=== PATIENT | female | born 1960 | race African-American/Black ===

== ENCOUNTER 2019-03-28 09:33 | Emergency (ER) | payer OTHER, MEDICAID ==
[~2019-03-28] VITALS: Ht 162.6 cm; Wt 58.1 kg
--- NOTE | 2019-03-28 09:33 | NUR ---
PT BIBA BLS TO ER BED 03
[2019-03-28 09:35] VITALS: BP 127/96
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
--- NOTE | 2019-03-28 09:50 | NUR ---
RESIDENT DOCTOR AT BEDSIDE FOR PT EVALUATION
--- NOTE | 2019-03-28 09:56 | NUR ---
DR Brandon JUAREZ AT BEDSIDE FOR PT EVALUATION
[2019-03-28] MEDS ORDERED: KETOROLAC 15 MG/ML VIAL IM ONE (10:10)
--- NOTE | 2019-03-28 10:33 | NUR ---
PT TAKEN TO CT BY ENVIRONMENTAL GEOLOGIST VIA BED
--- NOTE | 2019-03-28 10:50 | NUR ---
PT TAKEN BACK FROM CT VIA BED
--- NOTE | 2019-03-28 11:15 | NUR ---
PT ASLEEP. EASILY AROUSABLE BY NAME. FULL CLEAR SPEECH. PT STATES HER PAIN IS SUBSIDING TO 3/10. NO SIGNS AND SYMPTOMS OF DISTRESS NOTED. WILL CONTINUE TO MONITOR.
[2019-03-28 12:45] VITALS: BP 124/84
--- NOTE | 2019-03-28 12:45 | NUR ---
Patient discharged with v/s stable. Written and verbal after care instructions given and explained. Patient verbalized understanding. Ambulatory with steady gait. All questions addressed prior to discharge. Advised to follow up with PMD.
== END 2019-03-28 12:45 | disposition home or self-care (01) ==
LOC: MED 09:33
DX: M54.5 Low back pain (principal); M25.552 Pain in left hip; Z88.5 Allergy status to narcotic agent; Z88.6 Allergy status to analgesic agent; V89.2XXA Person injured in unspecified motor-vehicle accident, traffic, initial encounter; Y93.89 Activity, other specified; Y92.89 Other specified places as the place of occurrence of the external cause; Y99.8 Other external cause status
CPT/HCPCS: 72100; 72125; 72170; 73502; 96372; 99284; J1885